=== PATIENT | male | born 1980 | race Caucasian/White ===

== ENCOUNTER 2022-11-07 08:30 | Emergency (ER) | payer SELFPAY ==
[2022-11-07 08:40] VITALS: BP 143/89; PULSE 85; RESP 16; TEMP 36.7; O2SAT 98
--- NOTE | 2022-11-07 08:50 | ED.EAR ---
HPI - Ear Problem General Chief complaint: Ear Stated complaint: Left Ear Irritation Time Seen by Provider: 11/07/22 08:50 Source: patient Mode of arrival: ambulatory Limitations: no limitations History of Present Illness HPI Narrative: 42-year-old male presents with complaint of pain, muffled hearing to left ear for the past several days. Patient reports recent swimming in full but no history of swimmer's ear. Afebrile. 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 No other complaints today. All systems reviewed and negative except as noted. Related Data Allergies Allergy/AdvReac Type Severity Reaction Status Date / Time No Known Allergies Allergy Verified 11/07/22 08:39 Review of Systems Review of Systems: CONSTITUTIONAL: Denies fever, chills, or sweats. EYES: Denies visual changes, redness, or discharge. ENT: Denies rhinorrhea, congestion, sore throat . Reports pain and muffled hearing to left ear. CARDIOVASCULAR: Denies chest pain, palpitations, or edema. RESPIRATORY: Denies cough or dyspnea. GASTROINTESTINAL: Denies abdominal pain, nausea, vomiting, or diarrhea. GENITOURINARY: Denies dysuria or hematuria. SKIN: Denies rash or itching. MUSCULOSKELETAL: Denies back pain, joint pain, or myalgia. NEUROLOGIC: Denies headache, numbness, or weakness. PSYCHIATRIC: Denies anxiety or depression. All other systems reviewed are negative, except as documented in HPI. PMFSH Comments At time of signature, agree with nursing past medical, surgical, social and family history. There is no relevant family history pertinent to the presenting complaint. Exam Narrative: GENERAL: This is a well-nourished, well-developed patient, in no apparent distress. HEAD: normocephalic, atraumatic. EYES: PERRL. Sclera clear/white. Vision is grossly intact. EARS: External ears normal, L ear canal has a cotton-like drainage with black specks, L TM has layer of grayish colored drainage covering it. R TM and canal normal. NOSE: External nose normal NECK: Neck supple, non-tender without lymphadenopathy, masses or thyromegaly. CARDIOVASCULAR: Regular rate and rhythm without murmurs, gallops, or rubs. RESPIRATORY: Clear to auscultation. Breath sounds equal bilaterally. No wheezes, rales, or rhonchi. SKIN: warm, Dry, intact with no suspicious lesions or rash, good texture and turgor. NEURO: awake, alert, and oriented to person, place and time. There were no obvious focal neurologic abnormalities. EXTREMITIES: No joint tenderness, effusion, or edema noted. Course Course Level of Care: Express Care Visit Vital Signs Vital signs: Vital Signs Temperature 36.7 C 11/07/22 08:40 Pulse Rate 85 11/07/22 08:40 Respiratory Rate 16 11/07/22 08:40 Blood Pressure 143/89 H 11/07/22 08:40 Pulse Oximetry 98 11/07/22 08:40 Oxygen Delivery Room Air 11/07/22 08:40 Temperature 36.7 C 11/07/22 08:40 Pulse Rate 85 11/07/22 08:40 Respiratory Rate 16 11/07/22 08:40 Blood Pressure 143/89 H 11/07/22 08:40 Pulse Oximetry 98 11/07/22 08:40 Oxygen Delivery Room Air 11/07/22 08:40 reviewed Medical Decision Making MDM Narrative Medical decision making narrative: Patient is aware of diagnosis, understands and agrees to treatment plan. Anticipatory guidance given. Patient agrees to follow-up as directed and is aware of reasons to seek care at the emergency department. Portions of this record may have been created with voice recognition software treating pt with antibiotic and fungal ear drops. fungal culture sent. pt instructed to follow up with ENT if fungal culture positive. Vital Signs Vital Signs: Vital Signs Temperature 36.7 C 11/07/22 08:40 Pulse Rate 85 11/07/22 08:40 Respiratory Rate 16 11/07/22 08:40 Blood Pressure 143/89 H 11/07/22 08:40 Pulse Oximetry 98 11/07/22 08:40 Oxygen Delivery Room Air 11/07/22 08:40 Temperature 36.7 C 11/07/22
== END 2022-11-07 09:10 | disposition home or self-care (01) ==
PROVIDERS: Emergency Provider Nurse Practitioner Family
DX: B49 Unspecified mycosis (principal)
CPT/HCPCS: 87102; 87206; 99213; G0463